=== PATIENT | female | born 1960 | race Caucasian/White ===

== ENCOUNTER 2021-05-20 15:29 | Inpatient (IN) | payer OTHER ==
[~2021-05-20] VITALS: Ht 170.2 cm; Wt 123.4 kg
[2021-05-20] MEDS ORDERED: DEXA1 PO (15:54)
[2021-05-20] MEDS ORDERED: LIPITOR80 MG PO (15:55)
[2021-05-20] MEDS ORDERED: METAMUCIL POWD575 GM PO (15:56)
[2021-05-20] MEDS ORDERED: EZET10 PO (15:57)
[2021-05-20] MEDS ORDERED: ALOGLIPTIN25 M1 PO (15:58)
[2021-05-20] MEDS ORDERED: SERT100 PO (15:59)
[2021-05-20 16:00] LABS: Hematocrit 44.7 % (33.0-51.0); Hemoglobin 14.5 g/dL (11.5-16.0); Mean Corpuscular HGB 28.7 pg (26.0-34.0); Mean Corpuscular HGB Conc 32.4 g/dL (31.5-36.5); Mean Corpuscular Volume 88 fL (80-100); Mean Platelet Volume 9.6 fL (9.1-12.4); Platelet Count 234 K/mm3 (150-400); RDW Coefficient Variation 13.7 % (11.7-14.2); RDW Standard Deviation 43.8 fL (35.1-46.3); Red Blood Cell Count 5.06 M/mm3 (3.80-5.20); White Blood Cell Count 7.19 K/mm3 (4.00-11.30)
[2021-05-20] MEDS ORDERED: Methocarbamol500 MG PO (16:00)
[2021-05-20] MEDS ORDERED: ALBU90OI INH (16:01)
[2021-05-20] MEDS ORDERED: BUPR150ER PO (16:02)
[2021-05-20] MEDS ORDERED: AMLO10 PO (16:03)
[2021-05-20] MEDS ORDERED: TRAZ100 PO (16:03)
[2021-05-20] MEDS ORDERED: VITAMIN D31000 UNI1 PO (16:04)
[2021-05-20] MEDS ORDERED: COREG12.5 M1 PO (16:05)
[2021-05-20] MEDS ORDERED: LOSARTAN POTAS100 M1 PO (16:05)
[2021-05-20 16:26] LABS: Alanine Aminotransfer (ALT/SGP 29 U/L (12-78); Albumin, Blood 2.8 g/dL (3.4-5.0); Albumin/Globulin Ratio 0.6 (0.8-1.8); Alk Phos 36 U/L (50-136); Anion Gap 9 mmol/L (6-16); Aspartate Aminotrans (AST/SGOT 39 U/L (12-37); Bilirubin, Total 0.4 mg/dL (0.1-1.0); Blood Urea Nitrogen 17 mg/dL (8-24); Bun/Creatinine Ratio 19.2 (12.0-20.0); CO2, Blood 26 mmol/L (21-32); Calcium, Blood 8.8 mg/dL (8.5-10.1); Chloride, Blood 100 mmol/L (98-108); Creatinine, Blood 0.89 mg/dL (0.40-1.00); Globulin, Blood 4.5 g/dL (2.2-4.0); Glomerular Filtration Rate >60 (60-); Glucose, Blood 108 mg/dL (70-99); Sodium, Blood 135 mmol/L (136-145); Total Protein, Blood 7.3 g/dL (6.4-8.2)
[2021-05-20 16:34] LABS: BASOPHILS PERCENT MAN 0 % (0-2); EOSINOPHILS PERCENT MAN 0 % (0-6); LYMPHOCYTES PERCENT MAN 11 % (21-46); MONOCYTES PERCENT MAN 5 % (4-13); SEG NEUTROPHILS PERCENT MAN 84 % (41-73); TOTAL CELLS COUNTED 100
[2021-05-20 16:36] LABS: IMMATURE GRAN ABSOLUTE AUTO 0.03 K/mm3 (0.00-0.10); IMMATURE GRAN PERCENT AUTO 0 % (0-1); LYMPHOCYTES ABSOLUTE AUTO 1.53 K/mm3 (0.84-5.20); LYMPHOCYTES PERCENT AUTO 21 % (21-46); MONOCYTES ABSOLUTE AUTO 0.38 K/mm3 (0.16-1.47); MONOCYTES PERCENT AUTO 5 % (4-13); NEUTROPHILS ABSOLUTE AUTO 5.22 K/mm3 (1.96-9.15); NEUTROPHILS PERCENT AUTO 73 % (41-73)
[2021-05-20] MEDS ORDERED: INDO50 PO (17:38)
[2021-05-20 18:17] LABS: SARS-Cov-2 (COVID-19) PCR, MMC POSITIVE (NEGATIVE)
[2021-05-21 04:59] LABS: Hematocrit 44.9 % (33.0-51.0); Hemoglobin 14.6 g/dL (11.5-16.0); Mean Corpuscular HGB 28.5 pg (26.0-34.0); Mean Corpuscular HGB Conc 32.5 g/dL (31.5-36.5); Mean Corpuscular Volume 88 fL (80-100); Mean Platelet Volume 9.8 fL (9.1-12.4); Platelet Count 272 K/mm3 (150-400); RDW Coefficient Variation 13.5 % (11.7-14.2); RDW Standard Deviation 43.6 fL (35.1-46.3); Red Blood Cell Count 5.12 M/mm3 (3.80-5.20); White Blood Cell Count 4.79 K/mm3 (4.00-11.30)
[2021-05-21 05:18] LABS: Albumin, Blood 2.7 g/dL (3.4-5.0); Albumin/Globulin Ratio 0.6 (0.8-1.8); Bilirubin, Total 0.3 mg/dL (0.1-1.0); Bun/Creatinine Ratio 19.4 (12.0-20.0); Calcium, Blood 8.7 mg/dL (8.5-10.1); Creatinine, Blood 0.98 mg/dL (0.40-1.00); Globulin, Blood 4.8 g/dL (2.2-4.0); Potassium, Blood 4.1 mmol/L (3.5-5.5); Total Protein, Blood 7.5 g/dL (6.4-8.2)
--- NOTE | 2021-05-21 08:06 | NUR ---
Slept well. Only complaint of discomfort was low back which has been chronic for her. Glo has intermittant incontinence which is her baseline since her back surgery several years ago. this is not a new condition
[2021-05-21 08:47] LABS: BAND PERCENT MAN 1 % (0-8); BASOPHILS PERCENT MAN 0 % (0-2); EOSINOPHILS PERCENT MAN 0 % (0-6); LYMPHOCYTES ABSOLUTE MAN 0.91 K/mm3 (0.84-5.20); LYMPHOCYTES PERCENT MAN 19 % (21-46); MONOCYTES ABSOLUTE MAN 0.33 K/mm3 (0.16-1.47); MONOCYTES PERCENT MAN 7 % (4-13); MYELOCYTE ABSOLUTE MAN 0.04 K/mm3 (0.00-0.00); MYELOCYTE PERCENT MAN 1 % (0-0); NEUTROPHILS ABSOLUTE MAN 3.49 K/mm3 (1.96-9.15); SEG NEUTROPHILS PERCENT MAN 72 % (41-73); TOTAL CELLS COUNTED 100
--- NOTE | 2021-05-21 16:40 | NUR ---
SHIFT SUMMARY NO ACUTE CHANGES NOTED TO PT THIS SHIFT. PT IS AAOX4, ABLE TO MAKE NEEDS KNOWN, PLEASANT AND COOPERATIVE TO CARE. NO C/O PAIN THIS SHIFT. NO C/O CP OR N&V. PT CONTINUES ON 11LPM O2 VIA NC SATTING LOW 90's THIS SHIFT. PT CONTINUES TO C/O SOB W/ EXERTION. PT AMBULATES 1P ASSIST TO BSC. BED AT LOWEST POSITION. CALL LIGHT WITHIN REACH.
--- NOTE | 2021-05-22 04:07 | NUR ---
Shift Summary Pt admitted for covid 19+. Pt is a full code. The plan is to decrease pt 02 needs. Pt bladder scan due to no output throughout shift. Bladder scan showed 117ml. pt has poor oral intake.
--- NOTE | 2021-05-22 14:32 | NUR ---
DISCHARGE SUMMARY [facility] TRANSFER TO [facility] ORDERED. PT AAOX4, ABLE TO MAKE NEEDS KNOWN, PLEASANT AND COOPERATIVE TO CARE. PT 1P ASSIST TO BSC. NO C/O PAIN THIS SHIFT. PT VERBALIZED UNDERSTANDING OF DISCHARGE TEACHINGS AND ORDERS. REPORT GIVEN TO JESSICA FIGUEROA AT [facility] VIA PHONE CALL. PT REMAINS ON 11L HIGH FLOW O2 VIA NC. SATS 89-91%. DISCHARGE PAPERWORK GIVEN TO AMBULANCE STAFF UPON DISCHARGE. NO COMPLAINTS OR ISSUES NOTED FROM PATIENT PRIOR TO DISCHARGE. IV LINE D/C PRIOR TO DISCHARGE.
--- NOTE | 2021-05-22 14:56 | NUR ---
Introduction: Animal Laboratory Technician asked to talk to pt about Advanced Directives Assessment: 60 y/o female presented sitting up alert and oriented to visit. Pt accepting to converstion about advanced directives and expressed she would like her boyfriend to make decisions for her if she cannot. Pt answered questions in reference to her care but stopped and expressed,"I would prefer to wait to have my boyfriend present to answer further questions." Intervention: Cultivated a relationship of care and support. Introduced small booklet on Advanced directives and started reading to pt. Outcome: Pt haulted further talk because she wanted her boyfriend in on topic of discussion. Follow up: No follow up needed as pt is being tranferred to [place] in [place].
== END 2021-05-22 14:22 | DRG 177 ==
LOC: ER 15:29 → MEDS 17:29
PROVIDERS: Student in an Organized Health Care Education/Training Program; ADMIT Hospitalist
PROC: 8E0ZXY6 Isolation (ICD-10-PCS; principal; 2021-05-20)
PROC: XW033E5 Introduction of Remdesivir Anti-infective into Peripheral Vein, Percutaneous Approach, New Technology Group 5 (ICD-10-PCS; 2021-05-20)
PROC: 3E0DX3Z Introduction of Anti-inflammatory into Mouth and Pharynx, External Approach (ICD-10-PCS; 2021-05-20)
DX: U07.1 COVID-19 (principal); J12.82 Pneumonia due to coronavirus disease 2019; J96.01 Acute respiratory failure with hypoxia; J44.0 Chronic obstructive pulmonary disease with (acute) lower respiratory infection; E78.5 Hyperlipidemia, unspecified; E11.22 Type 2 diabetes mellitus with diabetic chronic kidney disease; F41.9 Anxiety disorder, unspecified; N18.30 Chronic kidney disease, stage 3 unspecified; I12.9 Hypertensive chronic kidney disease with stage 1 through stage 4 chronic kidney disease, or unspecified chronic kidney disease
CPT/HCPCS: 36415; 71045; 80053; 82728; 82947; 83036; 85025; 85379; 86141; 93005; 93010; 94640; 99285-25; A9270; C9113; J1650; J1815; J7030; U0004